=== PATIENT | male | born 2000 | race Caucasian/White ===

== ENCOUNTER 2025-04-08 10:37 | Emergency (ER) | payer BC ==
[2025-04-08] MEDS ORDERED: Ondansetron PF 4 MG/2 ML Vial ONE (12:00)
[2025-04-08] MEDS ORDERED: Famotidine/PF 20 mg/2ml Vial ONE (12:00)
[2025-04-08 12:34] LABS: #Basophils 0.03 10x3/uL (0.0-0.2); #Eosinophils 0.05 10x3/uL (0.0-0.5); #Monocytes 0.74 10x3/uL (0.0-1.1); #Neutrophils 3.25 10x3/uL (1.5-8.4); %Basophils 0.6 % (0.0-2.0); %Eosinophils 1.0 % (0.0-6.0); %Lymphocytes 20.5 % (18.0-47.0); %Monocytes 14.4 % (0.0-10.0); %Neutrophils 63.3 % (40.0-75.0); Hematocrit 45.8 % (38.8-50.0); Hemoglobin 16.3 g/dL (13.5-17.5); Mean Corpuscular Hemoglobin 30.8 pg (27.0-33.0); Mean Corpuscular Volume 86.4 fL (81.2-95.1); Platelet Count 168 10x3/uL (150-450); Red Blood Cell (RBC) Count 5.30 10x6/uL (4.32-5.72); White Blood Cell (WBC) Count 5.13 10x3/uL (3.5-10.5)
[2025-04-08 13:01] LABS: ALT (SGPT) 16 U/L (Less than 45); AST (SGOT) 29 U/L (11-34); Albumin 4.6 g/dL (3.1-4.5); Alkaline Phosphatase 71 U/L (40-110); Anion Gap 12 mmol/L (10-20); BUN (Urea Nitrogen) 17 mg/dL (8.9-20.6); Bilirubin, Total 1.9 mg/dL (0.3-1.2); Calc. Creatinine Clearance 0 mL/min (70-130); Calcium 9.7 mg/dL (7.8-10.44); Carbon Dioxide 26 mmol/L (22-29); Chloride 105 mmol/L (98-107); Globulin 2.4 g/dL (2.4-3.5); Glucose 86 mg/dL (70-105); Lipase 11 U/L (8-78); Potassium 4.0 mmol/L (3.5-5.1); Sodium 139 mmol/L (136-145)
== END 2025-04-08 13:33 | disposition home or self-care (01) ==
LOC: CSHERS 10:37
DX: R11.2 Nausea with vomiting, unspecified (principal); Z55.6 Problems related to health literacy
CPT/HCPCS: 80053; 83690; 85025; 96361; 96372; 96374; 96375; J1308; J2405